=== PATIENT | female | born 1985 | race Asian ===

== ENCOUNTER 2025-04-04 16:57 | Inpatient (IN) | payer OTHER ==
[2025-04-04 17:36] VITALS: BMI 27.4
[2025-04-04] MEDS ORDERED: MAGNESIUM HYDROX 2400MG/30ML ORAL SUSPENSION 30 ML CUP PO PRN (17:59)
[2025-04-04] MEDS ORDERED: LOPERAMIDE HCL 2 MG CAPSULE PO PRN (17:59)
[2025-04-04] MEDS ORDERED: POLYETHYLENE GLYCOL (HEALTHYLAX) 3350 17 GM PACKET PO PRN (17:59)
[2025-04-04] MEDS ORDERED: BENZONATATE 200 MG CAPSULE PO PRN (17:59)
[2025-04-04] MEDS ORDERED: BISMUTH SUBSALICYLATE 524 MG/30 ML PO PRN (17:59)
[2025-04-04] MEDS ORDERED: hydrOXYzine PAMOATE 25 MG CAPSULE (FP) PO PRN (17:59)
[2025-04-04] MEDS ORDERED: guaiFENesin 600 MG TABLET.ER (FP) PO PRN (17:59)
[2025-04-04] MEDS ORDERED: BENZOCAINE/MENTHOL (CHLORASEPTIC ) LOZENGE MM PRN (17:59)
[2025-04-04] MEDS ORDERED: NALOXONE (NARCAN) HCL 4 MG/0.1 ML SPRAY NS PRN (17:59)
[2025-04-04] MEDS ORDERED: DICYCLOMINE HCL 10 MG CAPSULE PO PRN (17:59)
[2025-04-04] MEDS ORDERED: ONDANSETRON *ODT* 4 MG TABLET SL PRN (17:59)
[2025-04-04] MEDS: MAG HYDROX/AL HYDROX/SIMETH 30 ML UNIT-DOSE CUP PO PRN (20:39)
[2025-04-04] MEDS: METHOCARBAMOL 500 MG TABLET PO PRN (22:19)
[2025-04-04] MEDS: THIAMINE 100 MG TABLET PO SCH (22:19)
[2025-04-04] MEDS: IBUPROFEN 600 MG TABLET (FP) PO PRN (22:20)
[2025-04-04] MEDS: MELATONIN 5 MG TABLETS PO SCH (22:26)
[2025-04-05] MEDS: ACETAMINOPHEN 325 MG TABLET (FP) PO PRN (05:34)
[2025-04-05] MEDS ORDERED: LEVOTHYROXINE NA 150 MCG TABLET PO SCH (10:00)
[2025-04-05] MEDS: LEVOTHYROXINE 100 MCG, LEVOTHYROXINE 50 MCG PO SCH (10:08)
[2025-04-05] MEDS: PRENATAL VITAMINS W/ FOLIC ACID TABLET (FP) PO SCH (10:08)
[2025-04-05] MEDS: PANTOPRAZOLE 40 MG TABLET PO SCH (10:08)
[2025-04-05] MEDS: LISINOPRIL 5 MG TABLET PO SCH (10:09)
[2025-04-05] MEDS: ASPIRIN COATED 81 MG TABLET.EC PO SCH (10:09)
[2025-04-05] MEDS: METOPROLOL TARTRATE 25 MG TABLET (FP) PO SCH (10:09)
[2025-04-05] MEDS: metFORMIN HCL 500 MG TABLET (FP) PO SCH (10:11)
[2025-04-05 12:49] LABS: MCHC 31.0 g/dl (32.2-35.5); MEAN CELL VOLUME 81.5 fl (79.4-94.8); MEAN PLT VOLUME 9.8 fl (9.4-12.3); RDW 17.9 % (12.1-16.8)
[2025-04-05 12:52] LABS: CO2 33 mmol/L (21-32); GLUCOSE,RANDOM 138 mg/dL (74-106)
[2025-04-05 12:56] LABS: CREATININE 1.2 mg/dL (0.55-1.3); SGOT/AST 22 U/L (15-37); SGPT/ALT 27 U/L (13-61)
[2025-04-05 12:57] LABS: TOT PROT 7.4 g/dl (6.4-8.2)
[2025-04-05 12:58] LABS: ALK PHOS 96 U/L (45-117)
[2025-04-05] MEDS: ATORVASTATIN CA 80 MG TABLET (FP) PO SCH (22:01)
[2025-04-06] MEDS: ESCITALOPRAM OXALATE 20 MG TABLET PO SCH (09:58)
[2025-04-07] MEDS: IBUPROFEN 400 MG TABLET (FP) PO PRN (17:26)
[2025-04-08] MEDS ORDERED: INSULIN ASPART SLIDING SCALE (NOVOLOG) 1 VIAL SQ ONE (05:14)
[2025-04-08 09:07] VITALS: BP 142/97; PULSE 81; RESP 18; TEMP 97.5
== END 2025-04-08 09:57 | disposition home or self-care (01) | DRG 897 ==
LOC: YASAS 16:57 → Y3N 19:14
PROVIDERS: ADMIT Neuromusculoskeletal Medicine & OMM; ATTEND Allergy & Immunology
PROC: HZ2ZZZZ Detoxification Services for Substance Abuse Treatment (ICD-10-PCS; principal; 2025-04-04)
DX: F10.230 Alcohol dependence with withdrawal, uncomplicated (principal); F11.23 Opioid dependence with withdrawal; I10 Essential (primary) hypertension; E11.9 Type 2 diabetes mellitus without complications; E78.5 Hyperlipidemia, unspecified; E03.9 Hypothyroidism, unspecified; F41.8 Other specified anxiety disorders; K21.9 Gastro-esophageal reflux disease without esophagitis; I25.10 Atherosclerotic heart disease of native coronary artery without angina pectoris
CPT/HCPCS: 36415; 80053; 80305; 80307; 81025; 82962; 84443; 85027; 86780; 93005; 93010

== ENCOUNTER 2025-04-08 19:26 | Emergency (ER) | payer OTHER ==
[2025-04-08 19:40] VITALS: TEMP 97.7; BMI 27.4
[2025-04-08] MEDS: SODIUM CHLORIDE 0.9% 500 ML INFUS.BAG IV ONE (20:39)
[2025-04-08 20:48] LABS: BG HCT 38.0 % (32.4-45.2); VENOUS BASE EXCESS -3.0 mmol/L (-2-2); VENOUS O2 SATURATION 71.6 % (70-80); VENOUS PCO2 46.3 mmHg (38-52); VENOUS PH 7.319 (7.310-7.410)
[2025-04-08 20:53] LABS: ABSOLUTE IMMATURE GRANULOCYTES 0.08 x10^3/uL (0.0-0.031); BASOPHILS # 0.07 x10^3/uL (0.01-0.08); EOSINOPHIL % 2.1 % (0.7-5.8); EOSINOPHILS # 0.17 x10^3/uL (0.04-0.36); MCHC 30.6 g/dl (32.2-35.5); MEAN CELL VOLUME 84.8 fl (79.4-94.8); MEAN PLT VOLUME 9.1 fl (9.4-12.3); MONOCYTE # 0.25 x10^3/uL (0.24-0.86); MONOCYTE % 3.1 % (4.7-12.5); RDW 18.1 % (12.1-16.8)
[2025-04-08] MEDS ORDERED: HALOPERIDOL LACTATE 5 MG/ML ONE (21:04)
[2025-04-08 21:06] LABS: CO2 26.0 mmol/L (21-32); GLUCOSE,RANDOM 114.0 mg/dL (74-106)
[2025-04-08 21:08] LABS: SGOT/AST 15.0 U/L (15-37); SGPT/ALT 22.0 U/L (13-61)
[2025-04-08] MEDS: HALOPERIDOL LACTATE 5 MG/ML IM ONE (21:08)
[2025-04-08 21:09] LABS: CREATININE 1.0 mg/dL (0.55-1.3)
[2025-04-08 21:10] LABS: TOT PROT 7.4 g/dl (6.4-8.2)
[2025-04-08 21:11] LABS: ALK PHOS 75.0 U/L (45-117)
[2025-04-08 21:21] LABS: LACTIC ACID 2.3 mmol/L (0.4-2.0)
[2025-04-08 21:31] LABS: COCAINE, UR NEGATIVE (NEGATIVE); METHADONE, UR NEGATIVE (NEGATIVE); OPIATES, URI NEGATIVE (NEGATIVE); PHENCYCLIDINE,URINE NEGATIVE (NEGATIVE)
[2025-04-08 21:32] LABS: URINE AMPHETAMINES NEGATIVE (NEGATIVE); URINE BARBITURATES NEGATIVE (NEGATIVE)
[2025-04-08 21:50] LABS: URINE BENZODIAZEPINES POSITIVE (NEGATIVE)
[2025-04-08 22:08] LABS: HCV DIAGNOSTIC IN-HOUSE W/RFLX NON-REACTIVE (NONREACTIVE)
[2025-04-08 22:11] LABS: HIV INTERPRETATION NEGATIVE (NEGATIVE)
[2025-04-08] MEDS ORDERED: MAGNESIUM SULFATE IN WATER 2 GM/50 ML IVPB IVPB ONE (22:55)
[2025-04-08] MEDS: MAGNESIUM SULFATE IN WATER 2 GM/50 ML IVPB IVPB ONE (22:59)
[2025-04-09] MEDS ORDERED: MIDAZOLAM HCL 2 MG/2 ML SINGLE DOSE VIAL ONE (00:15)
[2025-04-09 00:20] VITALS: BP 118/79; PULSE 85; RESP 17
[2025-04-09] MEDS: MIDAZOLAM HCL 2 MG/2 ML SINGLE DOSE VIAL IVPUSH ONE (00:20)
== END 2025-04-09 03:00 | disposition home or self-care (01) ==
LOC: JER 19:26
PROC: 3E033GC Introduction of Other Therapeutic Substance into Peripheral Vein, Percutaneous Approach (ICD-10-PCS; principal; 2025-04-08)
PROC: 3E023GC Introduction of Other Therapeutic Substance into Muscle, Percutaneous Approach (ICD-10-PCS; 2025-04-08)
PROC: 3E033GC Introduction of Other Therapeutic Substance into Peripheral Vein, Percutaneous Approach (ICD-10-PCS; 2025-04-09)
DX: F10.229 Alcohol dependence with intoxication, unspecified (principal); Y90.8 Blood alcohol level of 240 mg/100 ml or more; H57.04 Mydriasis
CPT/HCPCS: 36415; 70450-TC; 80053; 80307; 82803; 83605; 83735; 84703; 85025; 86803; 87389; 99285-25